=== PATIENT | female | born 1945 | race Caucasian/White ===

== ENCOUNTER 2016-07-02 10:31 | Day surgery (SDC) | payer BC ==
--- NOTE | 2016-07-02 07:03 | History and Physical Report ---
CHIEF COMPLAINT/HISTORY OF CHIEF COMPLAINT: This patient with a history of an intractable lumbar radiculitis had a spinal cord stimulator trial on 06/09/16. With 75-90% pain control and the failure of all therapies she presents today for implantation of a permanent system. PAST MEDICAL HISTORY: Hypertension, diabetes Type 2, and chronic obstructive pulmonary disease. PAST SURGICAL HISTORY: MEDICATIONS ON ADMISSION: List to be provided. ALLERGIES: FAMILY/PSYCHOSOCIAL HISTORY: SYSTEMS REVIEW: The patient is appropriate in no acute distress. The remainder of the systems review is positive for blood pressure problems, blood sugar issues, anxiety disorder, shortness of breath, and bladder dysfunction. PHYSICAL EXAMINATION: Height and weight are not known. Vital signs are unavailable. HEENT: Within normal limits. LUNGS: Clear. HEART: Regular rate and rhythm. ABDOMEN: Nontender. MUSCULOSKELETAL: Examination of the musculoskeletal system shows diffuse tenderness lumbar spine. Range of motion causing pain moving into both legs across the front and back surfaces. Ambulation - No assistive device utilized. NEUROLOGIC: Cranial nerves are intact. IMPRESSION: LUMBAR RADICULITIS, ICD10 CODE M54.16 AND M54.17. PLAN: The patient is here for implantation of a permanent spinal cord stimulator based upon the failure of all other therapies and the success of the trial. The potential risks, side effects, and complications have all been reviewed. Dural puncture, spinal cord injury, peripheral nerve and spinal nerve injury have all been reviewed. The patient understands and consents. She is here for a permanent implant. Because of the distance required which is greater than two hours to get home she will be kept overnight for observation. JYOTI GONZALEZ D.O. Date & Time JOB NUMBER: [id number] MTDD
[~2016-07-02 10:31] MED LIST: ACETAMINOPHEN 1000MG/100 ML PREMIX IV ONE; CEFAZOLIN 2 Gram 50 ML IVPB ONE; FAMOTIDINE 20MG TABLET PO ONE; MECLIZINE 25 MG TABLET PO ONE; METOCLOPRAMIDE 10 MG TABLET PO ONE
[2016-07-02] MEDS ORDERED: LIDOCAINE 1% W/EPI 1:200,000 MPF 30ML SQ ONE (14:00)
[2016-07-02] MEDS ORDERED: BUPIVACAINE 0.5% W/EPI MPF 30 ML VIAL IVP ONE (14:00)
[2016-07-02] MEDS ORDERED: LEVEMIR FLEXTOUCH 100 UNIT/ML INSULIN PEN SQ ONE (14:00)
[2016-07-02] MEDS ORDERED: NOVOLOG FLEXPEN (INSULIN ASPART) 100 UNITS/ML SQ ONE (14:00)
[2016-07-02] MEDS ORDERED: PROPOFOL 10 MG/ML VIAL IV ONE (15:59)
[2016-07-02] MEDS ORDERED: FENTANYL PF 100MCG/2ML VIAL IV ONE (15:59)
[2016-07-02] MEDS ORDERED: *PACU ONLY* KETAMINE HCL 10 MG/ML (20ML) VIAL IV ONE (15:59)
[2016-07-02] MEDS ORDERED: LIDOCAINE 2% MDV (20MG/ML) 20ML VIAL IV ONE (15:59)
[2016-07-02] MEDS ORDERED: METOCLOPRAMIDE 10 MG TABLET PO PRN (16:44)
[2016-07-02] MEDS ORDERED: HYDROMORPHONE HCL 2 MG/ML VIAL IM PRN (16:44)
[2016-07-02] MEDS ORDERED: DIPHENHYDRAMINE HCL IV 50 MG/ML VIAL IVP PRN ×2 (16:44)
[2016-07-02] MEDS ORDERED: SENNOSIDES/DOCUSATE SODIUM UD CAPSULE PO PRN ×2 (16:44)
[2016-07-02] MEDS ORDERED: ACETAMINOPHEN 325 MG TAB PO PRN ×2 (16:44)
[2016-07-02] MEDS ORDERED: HYDROCODONE/APAP 7.5/325MG TABLET PO PRN ×2 (16:44)
[2016-07-02] MEDS ORDERED: AL HYDROX/MAG HYDROX 30ML UD PO PRN (16:44)
[2016-07-02] MEDS ORDERED: TEMAZEPAM 15 MG CAPSULE PO PRN ×2 (16:44)
[2016-07-02] MEDS ORDERED: OXYCODONE/APAP 10MG-325MG TABLET PO PRN (16:44)
[2016-07-02] MEDS ORDERED: HYDROMORPHONE HCL 1 MG/ML CPJ IM PRN (16:44)
[2016-07-02] MEDS ORDERED: METOCLOPRAMIDE HCL 10 MG/2 ML VIAL IVP PRN (16:44)
[2016-07-02] MEDS ORDERED: DIPHENHYDRAMINE HCL 25 MG CAPSULE PO PRN ×2 (16:44)
[2016-07-02] MEDS: PATIENT OWN MED: HUMALOG KWIKPEN SC SCH (17:30)
[2016-07-02] MEDS: PATIENT OWN MED: GABAPENTIN 300 MG PO SCH ×2 (17:30→21:01)
[2016-07-02] MEDS: LEVEMIR SC SCH ×2 (17:31→21:01)
[2016-07-02] MEDS: PATIENT OWN MED: OXYBUTYNIN 5 MG PO SCH ×2 (17:31→21:01)
[2016-07-02] MEDS: CEFAZOLIN 2 Gram 50 ML IVPB SCH (20:49)
[2016-07-02] MEDS: OXYCODONE/APAP 10MG-325MG TABLET PO PRN (20:56)
[2016-07-02] MEDS ORDERED: 0.9 % SODIUM CHLORIDE 10ML SYR IVP SCH (22:00)
[2016-07-03] MEDS: CEFAZOLIN 2 Gram 50 ML IVPB SCH (05:04)
[2016-07-03] MEDS: OXYCODONE/APAP 10MG-325MG TABLET PO PRN (05:39)
[2016-07-03] MEDS: PATIENT OWN MED: HUMALOG KWIKPEN SC SCH (09:07)
[2016-07-03] MEDS: LEVEMIR SC SCH (09:11)
--- NOTE | 2016-07-03 16:27 | Operative Note - [place] ---
DATE OF SURGERY: 07/02/16 PREOPERATIVE DIAGNOSIS: INTRACTABLE LUMBAR RADICULITIS, ICD-10 CODE = M54.16 AND M54.17. OPERATION: 1. FLUOROSCOPICALLY-GUIDED EPIDURAL ACCESS RIGHT T12/L1, PLACEMENT OF SPINAL CORD STIMULATOR LEAD 1, A [employer] IN[employer]INION 16 WITH 16 ELECTRODES POSITIONED LEFT T7. 2. FLUOROSCOPICALLY-GUIDED EPIDURAL ACCESS RIGHT T11/12, PLACEMENT OF SPINAL CORD STIMULATOR LEAD 2, A [employer] 16 WITH 16 ELECTRODES POSITIONED RIGHT T7. 3. COMPLEX PROGRAMMING LEAD 1 OVER 20 MINUTES AND COMPLEX PROGRAMMING OF LEAD 2 OVER 20 MINUTES ESTABLISHING STIMULATION AND PAIN CONTROL TO ALL OF THE APPROPRIATE AREAS. 4. INCISION, SUBCUTANEOUS DISSECTION, AND CREATION OF SUBCUTANEOUS POUCH WITH ANCHORING OF LEAD 1 AND LEAD 2 TO DEEP FASCIA USING A [employer] LOCKING ANCHOR AND NONABSORBABLE SUTURE. 5. INCISION, SUBCUTANEOUS DISSECTION, AND CREATION OF SUBCUTANEOUS POUCH AT RIGHT FLANK ABOVE BELT LINE, SITE PICKED BY PATIENT. 6. TUNNELING BETWEEN POUCHES. PLACEMENT OF EXTERNAL PORTION OF LEAD 1 AND LEAD 2 INTO GENERATOR POUCH, EACH LEAD INTERFACED WITH BIFURCATED EXTENSION, EACH BIFURCATED EXTENSION INTERFACED TO GENERATOR. 7. PLACEMENT OF GENERATOR POUCH SECURING TO FASCIA WITH NONABSORBABLE SUTURE. PLACEMENT OF LEADS INTO POUCH. CLOSURE OF BOTH INCISIONS VICRYL FOR FASCIA, RUNNING SUBCUTICULAR VICRYL FOR SKIN. DERMABOND CLOSURE. 8. COMPLEX PROGRAMMING INTERNAL GENERATOR HOME USE, TWO STIMULATORS, 20 MINUTES RECOVERY ROOM. SURGEON: JYOTI GONZALEZ D.O. ANESTHESIA: LOCAL SEDATION. ANESTHESIA PROVIDER: LAURENCE HOWARD CRNA. INDICATION: This patient with a history of an intractable lumbar radiculitis. Due to the failure of all therapies, a spinal cord stimulator trial was conducted with 75 to 90% pain control. Due to the failure of all therapies and the success of the stimulator trial, the patient presents for implantation of a permanent system. PROCEDURE: Intravenous line, vital sign monitoring, IV sedation, prepped and draped sterile technique. With the patient prone, sterile prep, sterile technique, and under imaging, the epidural interspace right of the midline at 12 /1 and 11/12 infiltrated and two separate curved access Epimed needles with loss -of-resistance. At T12/1, spinal cord stimulator lead 1, a [employer] Infinion 16 with 16 electrodes positioned right at T7. With epidural access at 11/12, spinal cord stimulator lead 2, also a [employer] Infinion 16 with 16 electrodes, positioned left of the midline at T7. Complex programming of lead 1 over 20 minutes followed by complex programming of lead 2 over 20 minutes ultimately resulting in patterns of stimulation across the back and into the legs; patient indicating we were in all of the appropriate areas of her pain. She was given the option to implant, continue to program, or remove the system; she opted to implant the system. All questions were repeated with the same response. At that point, the skin above and below the needles was infiltrated, incision made, and subcutaneous dissection was conducted to the supraspinous fascia. Each lead was then anchored to the supraspinous fascia with an anchoring device and nonabsorbable suture. At the right flank above the belt line, a site picked by the patient, skin infiltrated, incision made, and subcutaneous dissection was used to form a pouch of suitable size and depth for the generator identified as a [employer] Programmable Rechargeable. Skin infiltrated, incision made, and subcutaneous dissection to form a pouch of suitable size. A tunneling tool was then used to carry the leads into the generator pouch and the leads were each interfaced with a bifurcated extension, each bifurcated extension was interfaced to the generator. Antibiotic irrigation and Bovie for hemostasis. The leads were coiled and placed into their own pouch and then the incision was closed Vicryl for fascia, running subcuticular Vicryl for skin. The flank pouch for the generator was similarly closed Vicryl for fascia and running subcuticular Vicryl for skin. Dermabond closure over both. She was transported to the Recovery Room stable showing no side-effects from the procedure or the sedation. When fully awake and alert in the Recovery Room, complex programming was performed of the two leads and the generator, again re-establishing stimulation. Because of the time of the day and the [address] home, the patient will be kept overnight for observation. DISCHARGE INSTRUCTIONS IN THE MORNIN. The sites will remain clean and dry although the Dermabond will allow showering. 2. Standard medications resumed including Levaquin, the antibiotic, 500 mg once a day for 14 days. 3. The office will contact the patient at home for an appointment in 3-5 days to evaluate the incisional sites. If the sites show abnormality, she should contact the clinic immediately. Her activities should stay low, no bend, lift, push, pull, and she will be evaluated in the office and cleared for further activities. All other instructions provided, numbers to contact, problems given. At that point, she will be discharged in the morning. JYOTI GONZALEZ D.O. Date & Time cc: Gail Vasquez NP JOB NUMBER: [id number] MTDD
== END 2016-07-03 10:50 | disposition home or self-care (01) ==
LOC: SUR 10:31 → MEDSURG 16:32 → SUR 07-03 10:50
PROVIDERS: ATTEND Pain Medicine Interventional Pain Medicine
DX: M54.16 Radiculopathy, lumbar region (principal); M54.17 Radiculopathy, lumbosacral region; E11.9 Type 2 diabetes mellitus without complications; Z79.4 Long term (current) use of insulin; Z79.84 Long term (current) use of oral hypoglycemic drugs; I10 Essential (primary) hypertension; J44.9 Chronic obstructive pulmonary disease, unspecified
CPT/HCPCS: 95972; 36416; 82948; 72020; 63685; 63650 ×2; 00300; J3010; J0690 ×2; J1815 ×2